=== PATIENT | female | born 1935 | race Caucasian/White ===

== ENCOUNTER → 2017-01-01 | Outpatient (CLI) | payer MEDICARE, MEDICAID ==
[~2017-01-01] MED LIST: ASA CHILDREN'S81 MG PO; ASCORBIC ACID500 MG PO; BACTRIM DS DPS1 TAB PO; CALCIUM 600 +1 EAC3 PO; CARTIA XT120 MG PO; CLEOCIN HCL300 MG PO; ESTRACE DPS PO; FLONASE 0.05% D16 GM NS; LASIX DPS20 MG PO; LUTEIN6 M1 PO; PRILOSEC DPS20 MG PO; SYNTHROID112 MCG PO; THERAPEUTIC MUL1 TAB PO; TYLENOL DPS325 MG PO; VITAMIN B6100 MG PO; ZESTORETIC 10/11 TAB PO; ZYRTEC DPS10 MG PO
== END | disposition home or self-care (01) ==
LOC: RAD.S 12-25 10:25
PROC: 3E0R33Z Introduction of Anti-inflammatory into Spinal Canal, Percutaneous Approach (ICD-10-PCS; principal; 2017-01-01)
DX: M79.605 Pain in left leg (principal); M51.36 Other intervertebral disc degeneration, lumbar region; M54.16 Radiculopathy, lumbar region